=== PATIENT | female | born 1965 | race Two or more races ===

== ENCOUNTER 2019-02-19 07:37 | Outpatient (CLI) | payer OTHER ==
[~2019-02-19] VITALS: Ht 162.6 cm; Wt 76.2 kg
[2019-02-19] MEDS ORDERED: AMOX-CLAV 875-1 EACH PO (09:09)
[2019-02-19] MEDS ORDERED: ZANTAC300 MG PO (09:09)
== END 2019-02-19 08:00 | disposition home or self-care (01) ==
LOC: OFIC 805 07:37
DX: R49.8 Other voice and resonance disorders (principal); J04.0 Acute laryngitis; J38.2 Nodules of vocal cords; J31.0 Chronic rhinitis; J34.2 Deviated nasal septum; E03.9 Hypothyroidism, unspecified